=== PATIENT | male | born 1985 | race Caucasian/White ===

== ENCOUNTER 2016-05-20 18:30 | Emergency (ER) | payer SELFPAY ==
--- NOTE | 2016-05-20 19:21 | ED Physician Documentation ---
General Adult - HISTORIAN Historian: patient - HPI Stated Complaint: cut to left index finger Chief Complaint: General Adult Further Comments: yes (30 year old male patient presents from [facility] with cut from razor. Patient states the razor was found in a common area, no body fluids visable on the razor. Patient reports last Tetanus unknown. Employer requesting blood exposure work up.) - ROS CONST: no problems EYES/ENT: none CVS/RESP: none GI/: none MS/SKIN/LYMPH: none NEURO/PSYCH: denies: headache - PAST HX Past History: none Other History: none Surgeries/Procedures: other (Right knee - multiple surgeries. ) Immunizations: tetanus (given in Er. ) Allergies/Adverse Reactions: Allergies Allergy/AdvReac Type Severity Reaction Status Date / Time No Known Allergies Allergy Verified 09/30/15 08:13 Home Medications: Ambulatory Orders Medication Instructions Recorded Meloxicam [Mobic] 7.5 mg PO 1T 05/20/16 - SOCIAL HX Smoking History: cigarettes - FAMILY HX Family History: No - VITAL SIGNS Vital Signs: Vital Signs Temp Pulse Resp BP Pulse Ox 98.4 F 88 16 127/58 05/20/16 18:30 05/20/16 18:30 05/20/16 18:30 05/20/16 18:30 - REVIEWED ASSESSMENTS Nursing Assessment Reviewed: Yes Vitals Reviewed: Yes Progress - Progress Progress: Blood exposure packet initiated. Wound cleaned in ER. HIV counseling completed. Patient does not want prophylaxis meds for HIV at this time. ED Results Lab/Radiology - Orders Orders: ED Orders Category Date Time Status CBC/PLATELET/DIFF Stat Lab 05/20/16 18:44 Ordered CMP Stat Lab 05/20/16 18:44 Ordered HEPATITIS B PANEL II Stat Lab 05/20/16 Ordered HEPATITIS B SURFACE AB,QUANT Stat Lab 05/20/16 Ordered HEPATITIS C ANTIBODY Stat Lab 05/20/16 Ordered HIV 1/HIV 2 ANTIBODIES (EIA) Stat Lab 05/20/16 Ordered Diph,Pertuss(Acell),Tet Vac/Pf [Adacel] Med 05/20/16 18:48 Discontinued 0.5 ml IM .ONCE ONE General Adult Physical Exam - PHYSICAL EXAM GENERAL APPEARANCE: [id number] N EENT: eye inspection normal, PHYLLIS RESPIRATORY: no resp distress, chest non-tender, breath sounds normal CVS: reg rate & rhythm, heart sounds normal, equal pulses, no murmur, no gallop , PMI nml, no JVD, no friction rub, 24 SKIN: warm/dry, normal color, other (left index finger 4mm superficial abrasion noted. ) EXTREMITIES: non-tender, normal range of motion, no evidence of injury, no edema , J, [employer]IA SUPERVISOR NEURO: oriented X3, CN's nml as tested, motor nml, sensation nml, mood/affect nml Discharge Clincal Impression: Exposure to blood-borne pathogen Laceration of finger of left hand Qualifiers: Encounter type: initial encounter Qualified Code(s): S61.219A - Laceration without foreign body of unspecified finger without damage to nail, initial encounter Additional Instructions: Recommended follow up lab: HIV - 6 weeks HIV - 3 month HIV and Hep C - 6 months HIV and Hepatitis C 12 months Home Medications: Ambulatory Orders Meloxicam [Mobic] 7.5 mg PO 1T 05/20/16 Condition: Stable Disposition: 01 HOME, SELF-CARE Decision to Admit: NO Decision Time: 19:30
[2016-05-20] MEDS: DIPH,PERTUSS(ACELL),TET VAC/PF 0.5 ML DISP.SYRIN IM ONE (19:44)
[2016-05-20 20:07] VITALS: BP 115/73
[2016-05-20 20:09] LABS: BASOPHILS % 0.5 (0.0-1.5); EOSINOPHILS % 3.8 % (0.0-6.8); LYMPHOCYTES # 3.4 # k/uL (0.6-4.0); MEAN CORPUSCULAR HEMOGLOBIN 30.4 pg (28.0-34.0); MONOCYTES # 0.5 # k/uL (0.0-0.9); MONOCYTES % 5.1 % (0.0-11.0); NEUTROPHILS # 5.6 # k/uL (1.4-7.7)
[2016-05-20 20:41] LABS: eGFR (African) > 60; eGFR (Non-African) > 60
== END 2016-05-20 19:58 | disposition home or self-care (01) ==
LOC: ED 18:30
DX: S61.219A Laceration without foreign body of unspecified finger without damage to nail, initial encounter (principal); X58.XXXA Exposure to other specified factors, initial encounter; Y93.9 Activity, unspecified; Y99.9 Unspecified external cause status; Z77.21 Contact with and (suspected) exposure to potentially hazardous body fluids
CPT/HCPCS: 80053; 85025; 86703; 86704; 86705; 86706; 86707; 86709; 86803; 87340; 87350; 90471; 90715; 99283